=== PATIENT | female | born 1965 | race Caucasian/White ===

== ENCOUNTER → 2017-02-05 | Outpatient (CLI) | payer BC ==
[~2017-02-05] MED LIST: DIAZ-165 PO; MULT-506; PROM25TA PO
--- NOTE | 2017-02-05 18:17 | DIAGNOSTIC IMAGING REPORT ---
TWO VIEW CHEST CLINICAL HISTORY: Cough and chest congestion. Wheezing. FINDINGS: PA and lateral chest radiographs are compared to study dated 09/26/2006. The cardiomediastinal silhouette is unremarkable. The lungs and pleural spaces are clear. There is no pneumothorax. The bony thorax appears intact. There is mild thoracic scoliosis. IMPRESSION: No active disease in the chest. Electronically signed by: Quintin Aj M.D. 02/05/2017 6:16 PM Dictated Date/Time: 02/05/2017 6:15 PM
== END | disposition home or self-care (01) ==
LOC: C.RAD 17:40
PROVIDERS: ATTEND Physician Assistant Medical
DX: J22 Unspecified acute lower respiratory infection (principal)